=== PATIENT | female | born 2000 | race Caucasian/White ===

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

== ENCOUNTER 2024-02-01 09:06 | Day surgery (SDC) | payer OTHER ==
[~2024-02-01] VITALS: Ht 165.1 cm; Wt 137.0 kg
[~2024-02-01 09:06] MED LIST: ADDE30CA3; OXCA150T21; SERT50TA29
[2024-02-01] MEDS ORDERED: LR 1,000 ML IV SCH ×2 (09:15→11:00)
[2024-02-01] MEDS ORDERED: MIDAZOLAM INJ 2MG/2ML VIAL As Ordered ONE (09:49)
[2024-02-01] MEDS ORDERED: fentaNYL 100 MCG/2 ML INJECTION As Ordered ONE (09:50)
[2024-02-01] MEDS ORDERED: LIDOCAINE 2% 100MG/5ML SDV (FOR ANES.) As Ordered ONE (09:51)
[2024-02-01] MEDS ORDERED: ROCURONIUM BROMIDE 50MG/5ML VIAL As Ordered ONE (09:51)
[2024-02-01] MEDS: OXYMETAZOLINE 0.05% NASAL SPRAY (AFRIN) As Ordered ONE (10:00)
[2024-02-01] MEDS ORDERED: dexmedeTOMIDine (4MCG/ML)200MCG/50ML BTL (PRECEDEX) As Ordered ONE (10:07)
[2024-02-01] MEDS ORDERED: ESMOLOL INJ 100MG/10ML VIAL As Ordered ONE (10:21)
[2024-02-01] MEDS ORDERED: SUGAMMADEX SODIUM 500 MG/5 ML VIAL (BRIDION) As Ordered ONE (10:26)
[2024-02-01] MEDS ORDERED: ACETAMINOPHEN 1000MG 100ML IV BAG As Ordered ONE (10:27)
[2024-02-01] MEDS ORDERED: propofoL 200 MG/20 ML VIAL As Ordered ONE (10:27)
[2024-02-01] MEDS ORDERED: KETOROLAC 60MG 2ML VIAL As Ordered ONE (10:27)
[2024-02-01] MEDS ORDERED: ONDANSETRON 4MG 2ML VIAL As Ordered ONE (10:31)
[2024-02-01] MEDS: LIDOCAINE W/EPINEPHRINE 1% 20ML VIAL As Ordered ONE (10:34)
[2024-02-01] MEDS ORDERED: PROMETHAZINE 25MG/ML 1ML VIAL IV PRN (11:00)
[2024-02-01] MEDS ORDERED: METOCLOPRAMIDE INJ 10MG/2ML VIAL IV PRN (11:00)
[2024-02-01] MEDS ORDERED: oxyCODONE 5MG TAB PO PRN (11:00)
[2024-02-01] MEDS ORDERED: ONDANSETRON 4MG 2ML VIAL IV PRN (11:00)
[2024-02-01] MEDS ORDERED: fentaNYL 100 MCG/2 ML INJECTION IV PRN (11:00)
[2024-02-01] MEDS ORDERED: HYDROMORPHONE HCL 0.5 MG/ 0.5 ML SYRINGE IV PRN (11:00)
[2024-02-01 12:04] VITALS: BP 119/79; TEMP 96.7; O2SAT 97
== END 2024-02-01 12:30 | disposition home or self-care (01) ==
LOC: M SDC 09:06
PROVIDERS: ATTEND Dentist Oral and Maxillofacial Surgery
DX: K02.9 Dental caries, unspecified (principal); F84.0 Autistic disorder
CPT/HCPCS: 81025; 88300; D7140; J0131; J1100; J1805; J1885; J2250; J2405; J3010